=== PATIENT | male | born 1965 | race African-American/Black ===

== ENCOUNTER 2017-01-02 13:46 | Emergency (ER) | payer MEDICAID ==
[2017-01-02 14:02] VITALS: BP 138/83; PULSE 77; RESP 16; TEMP 97.9; O2SAT 94
--- NOTE | 2017-01-02 14:39 | EDPHY ---
H & P Stated Complaint: ROCK VS L EYE, ALSO CONCERNED ABOUT NOSE Time Seen by Provider: 01/02/17 14:34 HPI/ROS: CHIEF COMPLAINT: Rock struck left eye area HISTORY OF PRESENT ILLNESS: This patient is a 51 year old male complaining of left eye pain secondary to being accidentally struck in the face by a rock around 11:30 this morning. He was working in the yard and a rock flew up from the lawnmower, striking him just above his left eye next to the bridge of his nose. Immediate onset of moderate facial pain. He immediately applied ice. He denies any changes in vision. Since he stopped icing the area, it has swelled more and he is unable to open his eye without holding it open with his fingers. He denies neck pain, headache, or other complaints. REVIEW OF SYSTEMS: A 10 point review of systems was performed and is negative with the exception of the elements mentioned in the history of present illness. Source: Patient - Personal History Current Tetanus Diphtheria and Acellular Pertussis (TDAP): Yes Tetanus Vaccine Date: 2011 - Medical/Surgical History PMH: Denies Other PMH: DENIES - Social History Smoking Status: Never smoked Additional Social History: Single. Lives in [place]. - Physical Exam Exam: Alert and oriented x3, pleasant Head: Tenderness over medial/superior aspect of orbit and nasal bridge. Visual Acuity: noted from Nurse's notes. Lids: Periorbital swelling especially of medial aspect of upper lid. He is unable to open the eye fully due to swelling. no proptosis, no periorbital erythema, no vesicles Conjunctivae: No erythema, no discharge Pupils: equal round and reactive to light EOMI Cornea: Normal Anterior chamber: Clear, no hyphema Neuro: alert and orients, CN II-XII intact, motor/sensory intact, gait normal Neck: NT, ROM without pain Chest: CTA CV: RRR Abd soft, NT Constitutional: Initial Vital Signs Temperature (C) 36.6 C 01/02/17 13:59 Heart Rate 77 01/02/17 13:59 Respiratory Rate 16 01/02/17 13:59 Blood Pressure 138/83 H 01/02/17 13:59 O2 Sat (%) 94 01/02/17 13:59 O2 Delivery Mode Room Air Allergies/Adverse Reactions: No Known Allergies Allergy (Unverified 01/02/17 13:58) Home Medications: Medication Instructions Recorded Hydrocodone/APAP 5/325 [[place] 1 - 2 tab PO Q4H PRN #10 tab 01/02/17 5/325 (*)] Medical Decision Making - Diagnostics Imaging Results: CT facial bones: orbital roof and nasal fx ED Course/Re-evaluation: 51 year old male presents with left eyelid swelling secondary to being struck with a rock flung from his lawnmower at 11:30 today. Plan for maxillofacial CT to rule out acute processes or osseous abnormalities. CT results d/w pt, will f/u with ENT for facial fx's. Neuro exam remains intact. No evidence of ocular injury or ICH. Differential Diagnosis: includes though not limited to ICH, ocular injury, open fx, cervical spine fx. Departure - Departure Disposition: Home, Routine, Self-Care Clinical Impression: Orbital roof closed fracture without intracranial injury Qualifiers: Encounter type: initial encounter Qualified Code(s): S02.19XA - Other fracture of base of skull, initial encounter for closed fracture Nasal fracture Qualifiers: Encounter type: initial encounter Fracture type: closed Qualified Code(s): S02.2XXA - Fracture of nasal bones, initial encounter for closed fracture Condition: Good Instructions: Nasal Fracture (ED), Facial Fracture (ED) Additional Instructions: 1. Follow up with Dr. Ceja for continued evaluation. 2. You may take 600mg of Ibuprofen every 6-8 hours with food as needed for pain and swelling. 3. Return to the emergency department if you develop any changes in vision, increased pain or discharge from your eye, severe headache, numbness or weakness , or other worsening of condition. 4. Do not blow your nose. Referrals: Anderson Marinelli DO [Medical Doctor] - As per Instructions Matt Ceja MD [Medical Doctor] - As per Instructions (Call on Tuesday to make an appointment.) Prescriptions: Hydrocodone/APAP 5/325 [[place] 5/325 (*)] 1 - 2 tab PO Q4H PRN #10 tab PRN Reason: Pain, Moderate Report Scribed for: Adamaris Woods Report Scribed by: Lovely Alberto Date of Report: 01/02/17 Time of Report: 14:41 Physician Review and Approval Statement: 01/02/17 14:41 Portions of this note were transcribed by a medical reception specialist. I personally performed a history, physical exam, medical decision making, and confirmed accuracy of information the transcribed note.
== END 2017-01-02 15:25 | disposition home or self-care (01) ==
DX: S02.19XA Other fracture of base of skull, initial encounter for closed fracture (principal); S02.2XXA Fracture of nasal bones, initial encounter for closed fracture; W20.8XXA Other cause of strike by thrown, projected or falling object, initial encounter; Y92.007 Garden or yard of unspecified non-institutional (private) residence as the place of occurrence of the external cause; Y99.8 Other external cause status; Y93.89 Activity, other specified